=== PATIENT | female | born 1985 | race Caucasian/White ===

== ENCOUNTER 2017-03-19 07:57 | Emergency (ER) | payer MEDICAID ==
[~2017-03-19] VITALS: Ht 162.6 cm; Wt 79.8 kg
--- NOTE | 2017-03-19 08:31 | NUR ---
GITA CALLED FOR REPORT,SPOKE WITH RATTLE LEAK AND SQUEAK REPAIRER
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
[2017-03-19 10:19] VITALS: BP 116/77
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
== END 2017-03-19 10:21 | disposition home or self-care (01) ==
LOC: ER 07:58
DX: O9A.313 Physical abuse complicating pregnancy, third trimester (principal); S39.91XA Unspecified injury of abdomen, initial encounter; S63.694A Other sprain of right ring finger, initial encounter; M79.603 Pain in arm, unspecified; Z3A.37 37 weeks gestation of pregnancy; Y04.8XXA Assault by other bodily force, initial encounter; Y07.01 Husband, perpetrator of maltreatment and neglect; Y92.89 Other specified places as the place of occurrence of the external cause; Y99.8 Other external cause status
CPT/HCPCS: 73140-TC; 76805-TC; A4606; Z7610

== ENCOUNTER 2019-07-20 22:09 | Inpatient (IN) | payer MEDICAID ==
[~2019-07-20] VITALS: Ht 163 cm; Wt 72.6 kg
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
--- NOTE | 2019-07-20 22:53 | NUR ---
CODE STROKE ACTIVATED
--- NOTE | 2019-07-20 22:56 | NUR ---
TELE STROKE CONNECT ID: [id number]
[2019-07-20] MEDS ORDERED: CT SWABBABLE VALVE TRANS SET 1 EA INFUS.SET MC ONE (22:58)
[2019-07-20] MEDS ORDERED: IOHEXOL-300 100 ML VIAL IV ONE (22:58)
--- NOTE | 2019-07-20 22:58 | NUR ---
PATIENT'S CT COMPLETE.
[2019-07-20] MEDS ORDERED: IV NS 0.9% 250 ML IV ONE (22:59)
[2019-07-20 23:01] LABS: BASOPHILS % (AUTO) 0.3 % (0.0-2.0); EOSINOPHILS % (AUTO) 1.3 % (0.0-6.0); HEMATOCRIT 38 % (33-45); HEMOGLOBIN 12.4 g/dL (11.5-14.8); LYMPHOCYTES # (AUTO) 3.4 /CMM (0.8-4.8); LYMPHOCYTES % (AUTO) 39.4 % (20.0-44.0); MEAN CORPUSCULAR HGB CONC 33 g/dl (31.0-36.0); MEAN CORPUSCULAR VOLUME 83 fL (82-100); MONOCYTES # (AUTO) 0.6 /CMM (0.1-1.30); MONOCYTES % (AUTO) 7.4 % (2.0-12.0); NEUTROPHILS # (AUTO) 4.4 /CMM (1.8-8.9); NEUTROPHILS % (AUTO) 51.6 % (43.0-81.0); PLATELET COUNT (AUTO) 330 /CMM (150-450); RED BLOOD CELL COUNT(AUTO) 4.56 MIL/uL (4.0-5.2); WHITE BLOOD COUNT (AUTO) 8.6 K/uL (4.3-11.0)
--- NOTE | 2019-07-20 23:05 | NUR ---
XRAY PROCEDURE COMPLETE
--- NOTE | 2019-07-20 23:06 | NUR ---
PHONE NUMBER FOR TELE STROKE DOCTOR KADI
[2019-07-20 23:10] LABS: CALCIUM, SERUM 9.6 mg/dL (8.5-10.1); CARBON DIOXIDE 29 mmol/L (21-32); CHLORIDE 104 mmol/L (98-107); CREATININE 0.8 mg/dL (0.6-1.3); GLUCOSE 96 mg/dL (74-106); POTASSIUM 3.6 mmol/L (3.5-5.1); SODIUM SERUM 139 mmol/L (136-145); UREA NITROGEN, BLOOD 15 mg/dL (7-18)
--- NOTE | 2019-07-20 23:15 | NUR ---
DR. COSTA ON THE PHONE WITH RADIOLOGIST
--- NOTE | 2019-07-20 23:23 | NUR ---
DR. WALLIS SPEAKING WITH PATIENT.
[2019-07-20 23:27] LABS: CHOLESTEROL 161 mg/dL (<200); LDL 101 mg/dL (0-99); TRIGLYCERIDES 70 mg/dL (30-150)
[2019-07-20 23:40] LABS: HDL CHOLESTEROL 45 mg/dL (40-60)
[2019-07-20] MEDS ORDERED: METOCLOPRAMIDE HCL 10 MG/2 ML VIAL ONE (23:47)
--- NOTE | 2019-07-20 23:57 | NUR ---
Patient is ambulatory with a steady gait.
[2019-07-21] MEDS ORDERED: IV NS 0.9% 1,000 ML IV ONE
[2019-07-21] MEDS ORDERED: METOCLOPRAMIDE HCL 10 MG/2 ML VIAL IV ONE
[2019-07-21] MEDS ORDERED: HYDROCODONE/APAP 5/325MG 1 EACH TABLET PO PRN (00:30)
[2019-07-21] MEDS ORDERED: ACETAMINOPHEN 325 MG TABLET PO PRN (00:30)
[2019-07-21] MEDS ORDERED: ONDANSETRON HCL/PF 4 MG/2 ML VIAL IVP PRN (00:30)
[2019-07-21] MEDS ORDERED: MAGNESIUM HYDROXIDE 30 ML UDC PO PRN (00:30)
[2019-07-21] MEDS ORDERED: ZOLPIDEM TARTRATE 5 MG TABLET PO PRN (00:30)
[2019-07-21] MEDS ORDERED: MAG HYDROX/AL HYDROX/SIMETH 30 ML UDC PO PRN (00:30)
[2019-07-21] MEDS ORDERED: Z GUARD REMEDY 2 OZ OINT TP PRN (00:30)
--- NOTE | 2019-07-21 00:32 | NUR ---
REPORT GIVEN TO MANUEL PRADO FOR TAYLOR.
--- NOTE | 2019-07-21 01:00 | NUR ---
ADMISSION NOTE PATIENT ADMITTED TO 311 BED 2 FOR R/O STROKE, AND CHEST PAIN. PATIENT CAME FROM HOME WHERE SHE WAS EXPERIENCING CP, LEFT SIDED WEAKNESS AND SOB, AND SEVERE [place]IAMSON. PATIENT BROUGHT TO ROOM IN WHEEL CHAIR AND WAS ABLE TO TRANSFER TO BED WITH MINIMAL ASSISTANCE. PATIENT ACTING APPRROPRIATE AXOX4 NOTED TO HAVE SEVERE WEAKNESS TO LEFT HAND BUT ABLE TO MOVE ENTIRE ARM WITH MILD WEAKNESS TO LEFT SIDE. MILD WEAKNESS NOTED TO LEFT FOOT. PERRLA 3 PATIENT SPEAKS CLEARLY AND SWALLOW EVAL PERFORMED AND PATIENT ABLE TO DRINK AND EAT WITHOUT ANY DEFICITS. PATIENT ORIENTED TO ROOM. REVIEWED POC WITH PATIENT. QUESTIONS CONCERNS ADDRESSED. BED DOWN LOCKED CALL LIGHT IN REACH WILL CONT TO MONITOR.
[2019-07-21 01:30] VITALS: BP 108/74
--- NOTE | 2019-07-21 03:15 | NUR ---
patient c/o mild anxiety and trouble sleeping. patient given sleeping pill ambien per her request as ordered. patient also given tyelnol for mild knowles of 3/10. pt placed on 2lnc of oxygen for c/o chest pain 5/10. patient appears anxious. patient reports cp down to 2/10 after oxygen application. patient assisted to br with standby assistance. verbalized understanding to clal for assistance as needed. will cont to monitor. bed alarm activated.
--- NOTE | 2019-07-21 07:30 | NUR ---
MS/RN Opening Note Received patient AO x 4, able to responds all stimuli. Skin is warm to touch, keep clean/dry, intact IV site. Reparatory even and unlabored with room air. Keep remain lower position of the bed with locked wheel for safety. Call light within reach, will continue to monitor.
[2019-07-21 08:00] VITALS: BP 103/63
[2019-07-21 09:12] LABS: CHOLESTEROL 148 mg/dL (<200); HDL CHOLESTEROL 46 mg/dL (40-60); LDL 95 mg/dL (0-99); TRIGLYCERIDES 48 mg/dL (30-150)
[2019-07-21] MEDS ORDERED: REGADENOSON 0.4 MG/5 ML DISP.SYRIN IVP ONE (10:00)
--- NOTE | 2019-07-21 11:40 | NUR ---
Patient left to stress test forstable condition, mentioned MD regarding pt needs SCD and blood thinner for R/O stroke but denies at this time.
[2019-07-21] MEDS ORDERED: ASPIRIN EC 81 MG TABLET.DR PO SCH (12:00)
--- NOTE | 2019-07-21 13:00 | NUR ---
Patient back from stress test in stable condition.
--- NOTE | 2019-07-21 13:16 | NUR ---
Social service consult requested by MD for CVA. Per MD notes and chart review, pt is a 33-year-old female patient who presented to the Emergency department with complaints of sudden headache, left sided weakness and chest pain. Per patient, her symptoms started around 8PM yesterday. Code stroke was activated in the ED. CT scan without contrast negative of ischemia or hemorrhage. Due to Covid-19, WASTEWATER ANALYST LAB ANALYST conducted the assessment via phone. Pt is alert and oriented x 4. Pt is pleasant and cooperative. Pt's mood is congruent. Pt resides with her and two children in an apartment in [place]. Pt's emergency contact is her Mandy . Pt reports, she is independent with her ADL's prior to hospitalization and is currently independent with ADLs during hospitalization. Pt is ambulatory. Pt reports, this is the first time she has experienced symptoms of possible stroke. Pt states, she had a difficult time sleeping last night due to being in a hospital and anxious about Covid-19. WASTEWATER ANALYST LAB ANALYST provided pt with active listening & supportive counseling. Pt denies any history of Depression. Pt denies suicidal and homicidal ideations and visual/auditory hallucinations at this time. WASTEWATER ANALYST LAB ANALYST completed PhQ-9 intervention. Pt has a score of 1. No other social service needs are requested at this time. WASTEWATER ANALYST LAB ANALYST is available, if needed.
[2019-07-21 16:00] VITALS: BP 105/67
--- NOTE | 2019-07-21 16:30 | NUR ---
Patient anxious about coronavirus and didn't want to wait until neuro doctor come to see her. Patient verbalize understanding about the risks and consequences involved in leaving the hospital at this time, the benefit of continued treatment and hospitalization. Patient signed AMA form and left facility, Dr. Sher merida.
--- NOTE | 2019-07-21 16:30 | NUR ---
Patient anxious about coronavirus and didn't want to wait until neuro doctor come to see her. Patient verbalize understanding about the risks and consequences involved in leaving the hospital at this time, the benefit of continued treatment and hospitalization. Patient signed AMA form and left facility Addendum: 07/21/19 at 1737 by DEVON CRUZ RN Error
== END 2019-07-21 16:30 | disposition left against medical advice (07) | DRG 48 ==
LOC: ER 22:10 → MED 07-21 00:23 → TELE 07-21 08:55
PROVIDERS: ADMIT Nurse Practitioner Acute Care
DX: G90.8 Other disorders of autonomic nervous system (principal); E78.5 Hyperlipidemia, unspecified; M54.9 Dorsalgia, unspecified; Z83.3 Family history of diabetes mellitus; R07.9 Chest pain, unspecified; R51 Headache; R53.1 Weakness
CPT/HCPCS: 36415; 70450-TC; 70496-TC; 70498-TC; 71045-TC; 80048-TC; 80061-TC; 84484-TC; 84702-TC; 85025-TC; 85730-TC; 87081-TC; 92611-TC; 93307-TC; 97116-TC; 97530-TC; A9502; G0378; J2765; J2785; J7030; J7050; Q9967

== ENCOUNTER 2020-06-11 06:04 | Emergency (ER) | payer MEDICAID ==
[~2020-06-11] VITALS: Ht 160 cm; Wt 71.2 kg
[2020-06-11 06:04] VITALS: BP 118/79
--- NOTE | 2020-06-11 06:28 | NUR ---
PT CAME WITH FAMILY C/O ABD PAIN, NAUSEA, VOMTING, DIARRHEA X 2 DAYS.PER OT, "I CANT KEEP ANYTHING DOWN." PT AAOX4, VSS, RESPIRATIONS EVEN AND UNLABORED ON RA W/ NAD NOTED. PT CONNECTED TO THE MONITOR AND POX.
== END 2020-06-11 06:49 | disposition home or self-care (01) ==
LOC: ER 06:11
DX: R11.2 Nausea with vomiting, unspecified (principal); R19.7 Diarrhea, unspecified; R10.84 Generalized abdominal pain

== ENCOUNTER 2022-12-18 02:42 | Emergency (ER) | payer MEDICAID ==
[~2022-12-18] VITALS: Ht 160 cm; Wt 69.4 kg
[2022-12-18] MEDS ORDERED: ONDANSETRON HCL/PF 4 MG/2 ML VIAL ONE (02:55)
[2022-12-18] MEDS ORDERED: ONDANSETRON HCL/PF 4 MG/2 ML VIAL IVP ONE (03:00)
[2022-12-18] MEDS ORDERED: IV NS 0.9% 1,000 ML BAG IV ONE (03:00)
[2022-12-18 03:11] LABS: BASOPHILS # (AUTO) 0.1 K/uL (0.0-0.2); BASOPHILS % (AUTO) 0.8 % (0.0-2.0); EOSINOPHILS # (AUTO) 0.2 K/uL (0.0-0.7); EOSINOPHILS % (AUTO) 1.5 % (0.0-6.0); HEMATOCRIT 40 % (33-45); HEMOGLOBIN 12.6 g/dL (11.5-14.8); LYMPHOCYTES # (AUTO) 1.3 K/uL (0.8-4.8); LYMPHOCYTES % (AUTO) 10.9 % (20.0-44.0); MEAN CORPUSCULAR HEMOGLOBIN 24 PG (26.0-33.0); MEAN CORPUSCULAR HGB CONC 32 g/dl (31.0-36.0); MEAN CORPUSCULAR VOLUME 75 fL (82-100); MONOCYTES # (AUTO) 0.6 K/uL (0.1-1.30); MONOCYTES % (AUTO) 5.1 % (2.0-12.0); NEUTROPHILS % (AUTO) 81.7 % (43.0-81.0); PLATELET COUNT (AUTO) 382 K/uL (150-450); RED BLOOD CELL COUNT(AUTO) 5.27 MIL/uL (4.0-5.2); WHITE BLOOD COUNT (AUTO) 12.2 K/uL (4.3-11.0)
[2022-12-18 03:16] LABS: CALCIUM, SERUM 9.7 mg/dL (8.5-10.1); CREATININE 0.9 mg/dL (0.6-1.3); POTASSIUM 3.4 mmol/L (3.5-5.1)
[2022-12-18 03:22] LABS: ALBUMIN 4.4 g/dL (3.4-5.0); BILIRUBIN,DIRECT 0.1 mg/dL (0.0-0.2); BILIRUBIN,TOTAL 0.6 mg/dL (0.2-1.0); TOTAL PROTEIN, SERUM 8.6 g/dL (6.4-8.2)
[2022-12-18] MEDS ORDERED: ONDA4TAB11 PO (04:23)
[2022-12-18] MEDS ORDERED: NITR100C PO (04:38)
[2022-12-18 04:56] VITALS: BP 112/68; TEMP 98.2; O2SAT 100
[2022-12-18] MEDS ORDERED: NITROFURANTOIN/MONOHYDRATE MACROCRYSTALS 100 MG CAPSULE PO ONE (05:00)
== END 2022-12-18 04:56 | disposition home or self-care (01) ==
LOC: ER 02:46
DX: K52.9 Noninfective gastroenteritis and colitis, unspecified (principal); N39.0 Urinary tract infection, site not specified; Z79.899 Other long term (current) drug therapy
CPT/HCPCS: 99283; 96374; 96361; 85025; 80048; 83690; 80076; 36415; J2405; J7030